=== PATIENT | male | born 2000 | race Caucasian/White ===

== ENCOUNTER 2021-11-03 12:11 | Emergency (ER) | payer OTHER, SELFPAY ==
--- NOTE | ~2021-11-03 | XR_ITS ---
XR finger 1st RT min 2V DATE: 11/03/2021 12:32 INDICATION: Jamming injury. Metacarpal pain. TECHNIQUE: 3 views COMPARISON: None FINDINGS: No fracture, dislocation, periosteal reaction or bone destruction, joint space narrowing, r adiopaque soft tissue foreign body. IMPRESSION: Negative Reviewed, dictated and finalized at location A. IMPRESSION: Negative
--- NOTE | 2021-11-03 12:13 | ED.UPPEXIN ---
HPI - Extremity Injury (Upper) General Chief Complaint: Extremity Injury, Upper Stated Complaint: right thumb injury Time Seen by Provider: 11/03/21 12:13 Source: patient and RN notes reviewed History of Present Illness HPI narrative: Patient is a 21-year-old male who presents the urgent care with complaints of right thumb pain and swelling. Patient states that he thinks he jammed the thumb in soccer last night. Patient has not taken anything [id number] for pain. No other acute complaints or injuries. No acute distress noted. Patient aware of the plan of care. Some parts of this dictation were generated by voice recognition software and may contain typographical and/or grammatical inaccuracies. Related Data Home Medications Medication Instructions Recorded Confirmed No Home Medications 11/03/21 11/03/21 Allergies Allergy/AdvReac Type Severity Reaction Status Date / Time No Known Allergies Allergy Verified 11/03/21 12:38 Review of Systems Review of Systems: CONSTITUTIONAL: Denies fever, chills, or sweats. EYES: Denies visual changes, redness, or discharge. ENT: Denies rhinorrhea, congestion, sore throat, or otalgia. CARDIOVASCULAR: Denies chest pain, palpitations, or edema. RESPIRATORY: Denies cough or dyspnea. GASTROINTESTINAL: Denies abdominal pain, nausea, vomiting, or diarrhea. GENITOURINARY: Denies dysuria or hematuria. SKIN: Denies rash or itching. MUSCULOSKELETAL: Reports of right pain and swelling to the thumb NEUROLOGIC: Denies headache, numbness, or weakness. All other systems reviewed are negative, except as documented in HPI. PMFSH Comments At the time of my signature, I reviewed and agree with the nursing past medical, surgical, social, and family history. There is no relevant family history pertinent to the patient complaint. Exam Narrative: GENERAL: This is a well-nourished, well-developed patient, in no apparent distress. HEAD: normocephalic, atraumatic. EYES: PERRL. Sclera clear/white. Vision is grossly intact. EARS: External ears normal NOSE: External nose normal with no obvious nasal discharge, nares without redness, no rhinorrhea. THROAT: Mucous membranes moist NECK: Neck supple SKIN: warm, intact with no suspicious lesions or rash, good texture and turgor. NEURO: awake, alert, and oriented to person, place and time. There were no obvious focal neurologic abnormalities. EXTREMITIES: Moderate edema and tenderness to the thenar eminence of the right thumb. Range of motion to right upper extremity within normal limits. No obvious deformity or fracture noted. Course Course Level of Care: Express Care Visit Vital Signs Vital signs: Vital Signs Temperature 98.3 F 11/03/21 12:22 Pulse Rate 78 11/03/21 12:22 Respiratory Rate 16 11/03/21 12:22 Blood Pressure 156/78 H 11/03/21 12:22 Pulse Oximetry 98 11/03/21 12:22 Temperature 98.3 F 11/03/21 12:22 Pulse Rate 78 11/03/21 12:22 Respiratory Rate 16 11/03/21 12:22 Blood Pressure 156/78 H 11/03/21 12:22 Pulse Oximetry 98 11/03/21 12:22 Reviewed-patient is informed that they may have pre-hypertension or hypertension based on a blood pressure reading in the department. I recommend the patient call the primary care provider listed on their discharge instructions or a physician of their choice this week to arrange follow-up for further evaluation of possible pre-hypertension or hypertension. MDM - Extremity Injury (Upper) MDM Narrative Medical decision making narrative: Reviewed x-ray results with the patient. He is aware that x-ray was negative for fracture or deformity. Advised the patient to wear the Vito wrap for the next few days for comfort and support. Use ice/Tylenol/ibuprofen. Is important to stabilize the hand is much as possible considering you plan to be using the hand quite often with your dental program. Make sure to rest the hand after your dental labs. Follow-up with your PCP within 2 to 5 days
[2021-11-03 12:22] VITALS: BP 156/78; PULSE 78; RESP 16; TEMP 36.8; O2SAT 98
--- NOTE | 2021-11-03 12:38 | PC.NURSE ---
PT DECLINED ICE FOR COMFORT
== END 2021-11-03 12:40 | disposition home or self-care (01) ==
PROVIDERS: Emergency Provider Nurse Practitioner Family
DX: S63.601A Unspecified sprain of right thumb, initial encounter (principal); W22.8XXA Striking against or struck by other objects, initial encounter; Y93.66 Activity, soccer
CPT/HCPCS: 73140; 99213; G0463

== ENCOUNTER 2021-12-25 14:50 | Outpatient (CLI) | payer OTHER, SELFPAY | END 2021-12-25 14:51 | disposition home or self-care (01) | PROVIDERS: PCP Family Medicine; Visit Provider Family Medicine | DX: R14.0 Abdominal distension (gaseous) (principal) | CPT/HCPCS: 36415; 86003 ==

== ENCOUNTER 2022-06-05 08:27 | Emergency (ER) | payer OTHER, SELFPAY ==
[2022-06-05 08:37] VITALS: BP 159/86; PULSE 67; RESP 16; TEMP 36.7; O2SAT 100
--- NOTE | 2022-06-05 08:45 | ED.WOUNDLAC ---
HPI - Wound/Laceration General Chief Complaint: Wound/Laceration Stated Complaint: Laceration to Finger Time Seen by Provider: 06/05/22 08:45 Source: patient Mode of arrival: ambulatory Limitations: no limitations History of Present Illness HPI narrative: 21 y/o male presented for c/o laceration to right index finger. Injury occurred yesterday, cut finger with his pocket knife. Has cleansed site with alcohol wipes and applied KALYANI with a dressing. endorses mild swelling And decreased range of motion due to pain. Denies redness or drainage, numbness, tingling, weakness. Related Data Allergies Allergy/AdvReac Type Severity Reaction Status Date / Time No Known Allergies Allergy Verified 06/05/22 08:43 Review of Systems Review of Systems: CONSTITUTIONAL: Denies body aches, fever, chills, or sweats. EYES: Denies visual changes, redness, or discharge. ENT: Denies rhinorrhea, congestion CARDIOVASCULAR: Denies chest pain, palpitations, or edema. RESPIRATORY: Denies cough or dyspnea. GASTROINTESTINAL: Denies abdominal pain, nausea, vomiting, or diarrhea. SKIN: per HPI MUSCULOSKELETAL: Denies back pain, joint pain, or myalgia. NEUROLOGIC: Denies headache, numbness, tingling, or weakness. [facility] Family History Family History Father Diabetes mellitus Depression Sleep apnea Sibling Depression Grandparent Breast cancer Social History Social History Drinks per week: 3 Alcohol use details: beer Substance use: never Substance use type: does not use Gender identity (if verbalized by the patient): Male Agree to blood products: Yes Comments At time of signature, I have reviewed and agree with nursing past medical, surgical, social and family history unless otherwise noted. Please see nursing chart for further information. There is no relevant family history pertinent to the presenting complaint Exam Narrative: GENERAL: Well-appearing HEAD: Normocephalic, atraumatic. EYES: conjunctivae clear, and EOMI. ENT: Mucous membranes moist. Oropharynx without edema, erythema or lesions. NECK: Supple. No lymphadenopathy CHEST: Clear to auscultation. HEART: Regular rate and rhythm. SKIN: Warm, dry. Right hand 2nd digit PIP with transverse lac approx 2mm and skin avulsion approx 4mm, scant active bleeding, Mild swelling at PIP, no redness/ induration or fluctuance NEURO: Alert and oriented x3. Course Course Emergency Course: Patient is aware of diagnosis, understands and agrees to treatment plan. Anticipatory guidance given. Patient agrees to follow-up as directed and is aware of reasons to seek care at the emergency department. Portions of this record may have been created with voice recognition software Level of Care: Express Care Visit Vital Signs Vital signs: Vital Signs Temperature 98.1 F 06/05/22 08:37 Pulse Rate 67 06/05/22 08:37 Respiratory Rate 16 06/05/22 08:37 Blood Pressure 159/86 H 06/05/22 08:37 Pulse Oximetry 100 06/05/22 08:37 Oxygen Delivery Room Air 06/05/22 08:37 Temperature 98.1 F 06/05/22 08:37 Pulse Rate 67 06/05/22 08:37 Respiratory Rate 16 06/05/22 08:37 Blood Pressure 159/86 H 06/05/22 08:37 Pulse Oximetry 100 06/05/22 08:37 Oxygen Delivery Room Air 06/05/22 08:37 Reviewed Procedures Orthopedic Splinting/Casting right 2nd digit: Upper Extremity Immobilizer: aluminum form splint MDM - Wound/Laceration MDM Narrative Medical decision making narrative: Tetanus UTD. Wound cleansed and irrigated. KALYANI and Band-Aid applied. Aluminum frog splint applied. Advised supportive measures and signs/symptoms to go to the ER. Pt is appropriate for outpt treatment and f/u. Differential Diagnosis Differential diagnosis: Likely laceration, abrasion and avulsion of skin Discharge Plan Discharge Clinical Impression: Av
== END 2022-06-05 09:03 | disposition home or self-care (01) ==
PROVIDERS: Emergency Provider Nurse Practitioner Family; PCP Family Medicine
DX: S61.200A Unspecified open wound of right index finger without damage to nail, initial encounter (principal); W26.0XXA Contact with knife, initial encounter
CPT/HCPCS: 29130; 99213; G0463